=== PATIENT | female | born 1995 | race Two or more races ===

== ENCOUNTER → 2020-11-19 08:57 | Outpatient (BNVA) | payer OTHER, SELFPAY | PROVIDERS: PCP Student in an Organized Health Care Education/Training Program; Visit Provider Internal Medicine | DX: S06.9X0A Unspecified intracranial injury without loss of consciousness, initial encounter (principal); S01.01XA Laceration without foreign body of scalp, initial encounter; S85.1 Injury of tibial artery; W18.30XA Fall on same level, unspecified, initial encounter | CPT/HCPCS: 99204 ==

== ENCOUNTER → 2020-11-24 11:47 | Outpatient (BNVA) | payer OTHER, SELFPAY | PROVIDERS: PCP Student in an Organized Health Care Education/Training Program; Visit Provider Internal Medicine | DX: S06.9X0A Unspecified intracranial injury without loss of consciousness, initial encounter (principal); S40.012A Contusion of left shoulder, initial encounter; S40.011A Contusion of right shoulder, initial encounter; S01.01XA Laceration without foreign body of scalp, initial encounter; W18.30XA Fall on same level, unspecified, initial encounter | CPT/HCPCS: 99212; 99214 ==

== ENCOUNTER → 2020-11-27 13:01 | Outpatient (BNVA) | payer OTHER, SELFPAY | PROVIDERS: PCP Student in an Organized Health Care Education/Training Program; Visit Provider Internal Medicine | DX: S06.2X0A Diffuse traumatic brain injury without loss of consciousness, initial encounter (principal); S01.01XA Laceration without foreign body of scalp, initial encounter; S81.811A Laceration without foreign body, right lower leg, initial encounter; S21.119A Laceration without foreign body of unspecified front wall of thorax without penetration into thoracic cavity, initial encounter; S11.91XA Laceration without foreign body of unspecified part of neck, initial encounter; W18.30XA Fall on same level, unspecified, initial encounter | CPT/HCPCS: 99213 ==

== ENCOUNTER → 2020-12-02 11:24 | Outpatient (BNVA) | payer OTHER, SELFPAY | PROVIDERS: PCP Student in an Organized Health Care Education/Training Program; Visit Provider Internal Medicine | DX: S06.2X0A Diffuse traumatic brain injury without loss of consciousness, initial encounter (principal); S01.01XA Laceration without foreign body of scalp, initial encounter; S81.811A Laceration without foreign body, right lower leg, initial encounter; W18.30XA Fall on same level, unspecified, initial encounter | CPT/HCPCS: 99213 ==

== ENCOUNTER → 2020-12-15 13:32 | Outpatient (BNVA) | payer OTHER, SELFPAY | PROVIDERS: PCP Student in an Organized Health Care Education/Training Program; Visit Provider Internal Medicine | DX: M25.561 Pain in right knee (principal); M79.645 Pain in left finger(s); S06.9X0D Unspecified intracranial injury without loss of consciousness, subsequent encounter; X58.XXXD Exposure to other specified factors, subsequent encounter; R51.9 Headache, unspecified | CPT/HCPCS: 99213 ==

== ENCOUNTER → 2020-12-25 10:35 | Outpatient (BNVA) | payer OTHER, SELFPAY | PROVIDERS: PCP Student in an Organized Health Care Education/Training Program; Visit Provider Internal Medicine | DX: S06.9X0D Unspecified intracranial injury without loss of consciousness, subsequent encounter (principal); W19.XXXD Unspecified fall, subsequent encounter; R41.89 Other symptoms and signs involving cognitive functions and awareness | CPT/HCPCS: 99214 ==

== ENCOUNTER 2021-01-01 10:25 | Outpatient (REF) | payer OTHER, SELFPAY ==
--- NOTE | ~2021-01-01 | MR_ITS ---
EXAMINATION: MR BRAIN WITHOUT CONTRAST CLINICAL INFORMATION: Worsening cognitive impairment status post fall from height 1 foot 4 inches 2020. Posterior headaches.. COMPARISON: Report from CT examination dated 11/16/2020 TECHNIQUE: MRI of the brain was obtained using routine sequences without contrast. FINDINGS: Posterior fossa structures are normal. The craniocervical junction is normal. Midline structures including the posterior pituitary bright spot are normal. There is no intracranial mass, mass effect, or shift of midline structures. No abnormal extra axial fluid collection. The lateral and third ventricles are normal and proportionate to the subarachnoid spaces and there is no evidence of hydrocephalus. There is no acute ischemia. No pathological magnetic susceptibility artifact is demonstrated. The intracranial vascular flow voids including the major dural venous sinuses are preserved. Mastoid air cells are clear. The visualized paranasal sinuses are well-aerated. Globes and orbits are symmetric. MR/MR head/brain wo con IMPRESSION: Normal MRI of the brain.
== END 2021-01-01 10:26 | disposition home or self-care (01) ==
LOC: HO.MRI 10:25
PROVIDERS: Visit Provider Internal Medicine
DX: S06.9X0D Unspecified intracranial injury without loss of consciousness, subsequent encounter (principal)
CPT/HCPCS: 70551

== ENCOUNTER → 2021-01-07 10:41 | Outpatient (BNVA) | payer OTHER, SELFPAY | PROVIDERS: PCP Student in an Organized Health Care Education/Training Program; Visit Provider Internal Medicine | DX: F07.81 Postconcussional syndrome (principal); S80.01XD Contusion of right knee, subsequent encounter; W19.XXXD Unspecified fall, subsequent encounter; R07.2 Precordial pain | CPT/HCPCS: 99214 ==

== ENCOUNTER 2021-01-12 13:00 | Outpatient (RCR) | payer OTHER, SELFPAY ==
[2020-12-18 11:12] VITALS: BP 130/62; PULSE 81; O2SAT 100
--- NOTE | 2020-12-18 12:58 | MHC.PT.EP ---
[facility] [place] Office [place] Office [place] Office [address] Calros Crisostomo [address] [phone] F: [phone] F: [phone] F: [phone] F: [phone] Physical Therapy Plan of Care Date of Evaluation: 12/18/20 Date of Surgery: Diagnosis: right knee internal derangement Assessment: 25 YO FEMALE REF TO PT FOR RIGHT KNEE INTERNAL DERANGEMENT AFTER SUSTAINING A FALL FROM A 12' PLATFORM AT WORK ON 11/16/20- OF NOTE, Pt HAD (+) LOC AND WAS BROUGHT TO [facility]. 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 Pt NOTES SHORT TERM MEMORY DEFICITS S/P FALL , DR FRAZIER AWARE. CURRENT FINDINGS: DECR AROM Rt KNEE, (+) INFRAPAT FAT PAD IRRIT AND GENERAL KNEE SWELLING, (+) PF SXS Rt KNEE, DECR STRENGTH IN PROX LEs, AND (+) PAIN W MED AND LAT DIRECTIONAL ACTIVITIES- SHE DOES NOT CURRENTLY HAVE INCR LAXITY IN Rt VS Lt KNEE, BUT HER CURRENT Rt KNEE PAIN DOES IMPACT ASSESSMENT . FUNCTIONALLY, Pt HAS ALTERED GAIT MECH, (+) COMPENSATION W FUNCT MOB- PARTIAL SQUAT, TRANSFERS, BED MOB, AND HAS DIFFIC W STAIR MGMT. SHE HAS SIGNIF TENDERNESS IN Rt MCL AND LCL REGIONS W PATELLAR IRRIT- Pt WOULD BENEFIT FROM PT TO ADDRESS PAIN MGMT, EDEMA REDUCTION, IMPROVE ROM, DEV A HEP FOR STRENGTH/ PROPRIOCEPTION/ DYNAMIC BALANCE, AND ASSIST HER IN RESUMING HER REGULAR ADLs/WORK TASKS APPROP. 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 Manual therapy to restore motion and function. Therapeutic exercise to improve strength and flexibility. Neuromuscular re-education for posture and balance. Therapeutic activities to return to functional activities of daily living. Electronically signed by: Cheryle Solis PT Please sign and return to therapist. Thank you for your referral.
--- NOTE | 2021-01-30 10:15 | MHC.PT.DC ---
[facility] [place] Office [place] Office [place] Office [address] Carlos Crisostomo [address] [phone] F: [phone] F: [phone] F: [phone] F: [phone] Physical Therapy Discharge Report Diagnosis: right knee internal derangement Date of Surgery: NA Date of Evaluation: 12/18/20 Date of Discharge: 01/30/21 Treatments to Date: 7 Cancellations to Date: 0 No Shows to Date: 0 Discharge Status: Achieved Goals Improved Function Independent with HEP Discharge Summary: Pt HAS PROGRESSED NICELY IN PT- SHE DEMON SIGNIF FUNCTIONAL MOBILITY GAINS, INDEP W HEP AND SELF-SX MGMT. SHE IS MOTIVATED AND EAGER TO RTW- SHE HAD A F/U IN THE WC AND IS D/C'D FROM PT AT THIS TIME HAVING MET HER GOALS. Electronically signed by: Cheryle Solis,PT Please sign and return to therapist. Thank you for your referral.
== END 2021-01-30 10:18 | disposition other institution (70) ==
LOC: HO.PT 13:00
PROVIDERS: PCP Student in an Organized Health Care Education/Training Program; Visit Provider Internal Medicine
DX: M23.91 Unspecified internal derangement of right knee (principal)
CPT/HCPCS: 97014; 97110; 97112; 97140; 97162; 97530

== ENCOUNTER 2021-01-19 16:05 | Outpatient (REF) | payer OTHER, SELFPAY ==
--- NOTE | ~2021-01-19 | MR_ITS ---
EXAMINATION: MR CHEST, NON-CONTRAST CLINICAL INFORMATION: Pain and tenderness mid sternum. History fall 2014. COMPARISON: None TECHNIQUE: MRI chest is performed without gadolinium contrast. Imaging is performed in 3 planes. Coronal images are obtained through long axis sternum. FINDINGS: The bone marrow signal is normal. The sternoclavicular joints are symmetric and unremarkable. No joint effusion. The manubrium and sternal body and xiphoid appear normal. No thoracic or upper lumbar vertebral compression or focal disc narrowing. There is no abnormal signal. No suprasternal or substernal soft tissues swelling. No bone marrow edema. The chest wall musculature is normal in signal and bilaterally symmetric. The breast soft tissues appear symmetric. There is no axillary adenopathy or visible supraclavicular adenopathy. No pleural effusion or pleural thickening. The heart is normal in size. Thoracic aorta is normal in caliber. No visible mediastinal mass or lymphadenopathy. Upper abdomen shows visualized liver and spleen to be unremarkable, homogeneous in signal. MR/MR chest wo con IMPRESSION: Unremarkable examination.
== END 2021-01-19 16:06 | disposition home or self-care (01) ==
LOC: HO.MRI 16:05
PROVIDERS: Visit Provider Internal Medicine
DX: R07.9 Chest pain, unspecified (principal); Z91.81 History of falling
CPT/HCPCS: 71550

== ENCOUNTER → 2021-01-21 13:06 | Outpatient (BNVA) | payer OTHER, SELFPAY | PROVIDERS: PCP Student in an Organized Health Care Education/Training Program; Visit Provider Internal Medicine | DX: S06.9X0D Unspecified intracranial injury without loss of consciousness, subsequent encounter (principal); W18.30XD Fall on same level, unspecified, subsequent encounter; R51.9 Headache, unspecified; R07.89 Other chest pain | CPT/HCPCS: 99213 ==

== ENCOUNTER → 2021-01-26 14:05 | Outpatient (BNVA) | payer OTHER, SELFPAY | PROVIDERS: PCP Student in an Organized Health Care Education/Training Program; Visit Provider Internal Medicine | DX: S06.0X0D Concussion without loss of consciousness, subsequent encounter (principal); W18.30XD Fall on same level, unspecified, subsequent encounter | CPT/HCPCS: 99213 ==

== ENCOUNTER 2025-05-27 00:30 | Emergency (ER) | payer OTHER, SELFPAY ==
[2025-05-27 00:32] VITALS: BP 108/65; PULSE 68; RESP 16; TEMP 36.9; O2SAT 99; BMI 28.3
--- OUTSIDE RECORDS SUMMARY | 2025-05-27 00:58 | XMS_ITS | Encounter Summary ---
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 Name Role Phone Will Pastor MD Primary Care Prov ider Encounter Details Date Type Department Care Team (Late st Contact Info) Description 12/12/2024 Orders Only [facility] [address] [place] [address] ProviderLiz MD Social History Tobacco Use Types Packs/Day Years Used Date Smoking Tobacco: Never Smokeless Tobacco: Never Alcohol Use Standard Drinks/Week Comments Never 0 (1 standard drink = 0.6 oz pur e alcohol) Depression Answer Date Recorded Patient Health Questionnaire-9 Score 0 10/04/2024 Patient Health Questionnaire-9 Score 0 10/04/2024 Last PHQ-9: Questionnaire Data Not on file 1 12/04/2023 Housing Stability Answer Date Recorded What is your housing situation today? I have vilma scott 10/04/[address] you li ve. Do you have problems with any of the following? None of the above 10/04/2024 Food Insecurity Answer Date Recorded Within the past 12 months, y ou worried that your food would run out before you got money to buy more: Never True 10/04/2024 Within the past 12 months,th e food you bought just didn't last and you didn't have enough money to get more: Never True Transportation Answer Date Recorded In the past 12 months, has l ack of transportation kept you from medical appts, meetings, work or from getting things needed for daily living? No 10/04/2024 Utilities Answer Date Recorded In the past 12 months, has t he electric, gas, oil or water company threatened to shut off services in your home? No 10/04/2024 Depression Answer Date Recorded Patient Health Questionnaire-2 Score 0 10/04/2024 Internet Access Answer Date Recorded Internet Access Q1 Yes 10/04/2024 Internet Access Q2 Not on file 10/04/2024 Comments Unknown Sex and Gender Information Value Date Recorded Sex Assigned at Female 09/12/2022 10:34 AM EDT Legal Sex Female 10:34 AM EDT Gender Identity Choose not to disclose 10:34 AM EDT Sexual Orientation Choose not to disclose 2021 10:34 AM EDT documented as of this encounter Plan of Treatment Upcoming Encounters Date Type Department Care Team (Late st Contact Info) Description 06/16/2025 3:30 PM EDT Office Visit [facility] [address] [place] [address] Will Pastor MD [address] [place] [address] 06/20/2025 9:45 AM EDT Office Visit [facility] [address] [place] [address] Will Pastor MD [address] [place] [address] documented as of this encounter Procedures Procedure Name Priority Date/Time Associated Diagnosis Comments HM PAP/HPV Routine 10/04/2024 11:19 AM EST documented in this encounter Results * HM PAP/HPV (10/04/2024 11:19 AM EST) us Historical Provider HEALTH MAINTENANCE Final Result documented in this encounter Visit Diagnoses Not on filedocumented in this encounter Additional Health Concerns Assessment Noted Time PHQ-9 Depression Total Score: 0 10/04/20 24 9:19 AM EST documented as of this encounter Care Teams Shrimp Peeling Machine Operator Relationship Specialty Start Date End Date Will Pastor MD [address] [place] [address] PCP - General Internal Medicine 10/04/24 documented as of this encounter
--- OUTSIDE RECORDS SUMMARY | 2025-05-27 00:58 | XMS_ITS | Clinical Summary ---
Author Organization [facility] Address [address] [place] [address] Care Team Providers Care Child Protective Services Social Worker Name Role Phone Unknown Primary Care Provider [phone] Social History Tobacco Use Types Packs/Day Years Used Date Smoking Tobacco: Never Assessed Comments Unknown Sex and Gender Information Value Date Recorded Sex Assigned at Not on file Legal Sex Female 8:18 AM EST Gender Identity Not on file Sexual Orientation Not on file Plan of Treatment Health Maintenance Due Date Last Done Comments Hepatitis C Virus Screening 1996 HIV Screening 2009 DTaP/Tdap/Td Vaccines (1 - Tdap) 2015 Hepatitis B Vaccines (1 of 3 - 19+ 3-dose series) 2015 COVID-19 Vaccine (2023-2 5 season) 2024 HPV Vaccines Aged Out No longer eligi ble based on patient's age to complete this topic Pneumococcal Vaccine: Pediat heriberto (0-5 Years) and At-Risk Patients (6 to 49 Years) Aged Out No longer eligible b ased on patient's age to complete this topic Care Teams Child Protective Services Social Worker Relationship Specialty Start Date End Date Unknown Unknow Provider Address PCP - General 11/14/20
--- NOTE | 2025-05-27 04:44 | ED.HA ---
HPI - Headache General Chief Complaint: Fall Stated Complaint: fall w/ head strike Time Seen by Provider: 05/27/25 03:07 Source: patient Mode of arrival: ambulatory Limitations: no limitations History of Present Illness ED Provider: Dr. 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 Admits she fell from a ladder and landed on her back. Describes head strike but not LOC. Has been dealing with severe headaches and dizziness since that time. Went to the and was diagnosed with migraine headaches. Prescribed Imitrex which has been helping until yesterday when her headache became more severe. Denies fever, chills, cough or cold type symptoms. No neck stiffness or rashes. No nausea or vomiting with these headaches. No numbness/tingling/weakness in the limbs. NO vision changes. Pain is improved with tylenol as well, last dose yesterday. No blood thinner use. Related Data Previous Rx's ?Medication ?Instructions ?Recorded nxycytyjci-xsichuevdncdo-nmdktcsg 1 cap PO Q8H PRN severe headache 05/27/25 50 mg-300 mg-40 mg capsule #10 caps (Fioricet) Allergies Allergy/AdvReac Type Severity Reaction Status Date / Time No Known Allergies Allergy Verified 05/27/25 00:36 Review of Systems Review of Systems: as per HPI, full review of systems performed and negative but for the above mentioned pertinent positives and negatives. [facility] Past Medical History Attestation statement: The following information was validated with the patient. [facility] Narrative: denies alcohol or tobacco use, admits to marijuana use Source: nursing notes reviewed Social History Social History Smoked in Last 30 Days: Yes Use of substances other than those prescribed or required for medical reasons: Yes Substance Use Type: Marijuana Substance Use Frequency: Occasionally Advance Directives: No Advance Directives Information Provided: Yes Do you have a plan to hurt others: No Plan Patient : No Physical Exam Vital Signs: Vital Signs: Last Vital Signs Temp 98.5 F 05/27/25 05:11 Pulse 69 05/27/25 05:11 Resp 18 05/27/25 05:11 BP 107/54 L 05/27/25 05:11 Pulse Ox 100 05/27/25 05:11 O2 Del Method Room Air 05/27/25 05:11 BMI result Body Mass Index 28.3 GENERAL: Uncomfortable-Appearing, conversant, mild distress due to pain. SKIN: Normal skin color for ethnicity, warm, dry, intact, no rashes noted. HEENT:? Normocephalic, atraumatic, no stridor, airway patent, no raccoon's eyes, no Del Angel sign, dentition intact, EOMI. NECK: Soft, supple, full ROM, midline structures nontender, no step-offs, no deformities, no lymphadenopathy. CHEST: Heart regular rate and rhythm, no murmurs, symmetric chest rise and fall, no seatbelt sign, no crepitus. PULMONARY: Clear to auscultation bilaterally, no labored breathing, no wheezes/rhales/rhonchi. ABDOMINAL: Soft, nondistended, nontender, positive bowel sounds in all quadrants. : Deferred. MUSCULOSKELETAL: Normal tone, full range of motion, no deformities, no contusions. NEURO: Alert and oriented x3, CN II through XII intact, equal strength and sensation bilateral upper and lower extremities, no focal neurologic deficits.? PSYCHIATRIC: Anxious affect, fluid speech, good eye contact and appropriate demeanor. Medications Administered Discontinued Medications Generic Name Dose Route Start Last Admin Trade Name Freq PRN Reason Stop Dose Admin Naproxen 500 mg 05/27/25 04:44 05/27/25 05:07 Naproxen 500 Mg Tablet PO 05/27/25 04:45 500 mg ONCE ONE Administration Medical Decision Making Medical Decision Making [facility] Narrative: Patient presents with a chief complaint of headache. ? The differential diagnosis on this patient includes but is not limited to trauma, migraine headache, tension headache, cluster headache, subarachnoid hemorrhage, dissection, venous thrombosis, meningitis, sinusitis, bleeding or tumor.? Based on history and physical exam, appropriate work-up was initiated. ? Medicated with naproxyn for headache. Using vietnamese head CT rule, no indication for imaging at this time. Patient reassured. Offered Rx for migraines for home. Using shared decision making, plan for discharge home to follow-up with primary care and/or specialist.? Patient understands and agrees with plan for discharge.? Discharged home in stable condition. Differential Diagnosis Differential Diagnoses: The differential diagnosis associated with the presentation includes (as above) Admission/Observation Consideration of admission/observation: Escalation of care including admission/observation considered Lab Data MDM Lab Attestation statement: I reviewed the patient's lab results. Prescription Management I considered prescription management with: Pain Medication Social Determinants Patient?s care significantly limited by Social Determinants of Health including: Alcoholism and drug addiction in family Discharge Plan Discharge Clinical Impression: Post concussive syndrome, Headache, migraine, intractable, with status migrainosus Patient Disposition: Home, Self-Care Instructions: Post Concussion Syndrome (ED), Chronic Post Traumatic Headache (ED) Prescriptions: New jwpgimqwjl-kyxftgaybmlne-dftz [Fioricet] 50-300-40 mg capsule 1 cap PO Q8H PRN (Reason: severe headache) Qty: 10 0RF Stand Alone Forms: Work/School Release Interventions: ED Discharge Assessment Last Done: 05/27/25 05:11 Discharge Date/Time: 05/27/25 05:12 Print Language: [place] Citizen
[2025-05-27 05:10] VITALS: BP 107/54; PULSE 69; RESP 18; TEMP 36.9; O2SAT 100
[2025-05-27 05:11] VITALS: BP 107/54; PULSE 69; RESP 18; TEMP 36.9; O2SAT 100
== END 2025-05-27 05:12 | disposition home or self-care (01) ==
PROVIDERS: Emergency Provider Emergency Medicine
DX: G43.901 Migraine, unspecified, not intractable, with status migrainosus (principal); G44.329 Chronic post-traumatic headache, not intractable; F07.81 Postconcussional syndrome
CPT/HCPCS: 99283; 99284